=== PATIENT | male | born 1950 | race Caucasian/White ===

== ENCOUNTER 2022-09-07 17:08 | Inpatient (IN) | payer MEDICARE, OTHER ==
[~2022-09-07] VITALS: Ht 167.6 cm; Wt 66.2 kg
[2022-09-07] MEDS ORDERED: ONDANSETRON HCL/PF 4 MG/2 ML VIAL IVP ONE (17:30)
[2022-09-07] MEDS ORDERED: IV NS 0.9% 1,000 ML BAG IV ONE (17:30)
[2022-09-07] MEDS ORDERED: MORPHINE SULFATE INJ 2 MG/ML DISP.SYRIN IV ONE (17:30)
--- NOTE | 2022-09-07 17:30 | NUR ---
C/O GENERALIZED ABDOMINAL PAIN 40 MINS AGO S/P INGESTING "SMALL AMOUNT OF CODEINE".
--- NOTE | 2022-09-07 17:35 | NUR ---
BLOOD SAMPLE OBTAINED
--- NOTE | 2022-09-07 17:35 | NUR ---
ESTABLISHED IV LINE LEFT AC 20 G
--- NOTE | 2022-09-07 17:35 | NUR ---
EKG DONE BY EMT AT BEDSIDE
[2022-09-07 17:52] LABS: BASOPHILS # (AUTO) 0.1 K/uL (0.0-0.2); BASOPHILS % (AUTO) 1.5 % (0.0-2.0); EOSINOPHILS % (AUTO) 3.8 % (0.0-6.0); HEMATOCRIT 38 % (39-51); HEMOGLOBIN 12.2 g/dL (13.5-17.5); LYMPHOCYTES # (AUTO) 1.3 K/uL (0.8-4.8); MEAN CORPUSCULAR HGB CONC 32 g/dl (31.0-36.0); MEAN CORPUSCULAR VOLUME 84 fL (80-96); MONOCYTES # (AUTO) 0.9 K/uL (0.1-1.30); MONOCYTES % (AUTO) 15.8 % (2.0-12.0); NEUTROPHILS # (AUTO) 3.1 K/uL (1.8-8.9); NEUTROPHILS % (AUTO) 55.9 % (43.0-81.0); PLATELET COUNT (AUTO) 283 K/uL (150-450); RED BLOOD CELL COUNT(AUTO) 4.46 MIL/uL (4.5-6.0); WHITE BLOOD COUNT (AUTO) 5.5 K/uL (4.3-11.0)
--- NOTE | 2022-09-07 17:53 | NUR ---
COVID SWAB TAKEN SENT TO LAB
--- NOTE | 2022-09-07 17:57 | NUR ---
MOVE SHEET SUBMITTED.
[2022-09-07 18:02] LABS: CALCIUM, SERUM 8.7 mg/dL (8.5-10.1); CARBON DIOXIDE 25 mmol/L (21-32); CHLORIDE 95 mmol/L (98-107); CREATININE 1.4 mg/dL (0.6-1.3); GLUCOSE 149 mg/dL (74-106); POTASSIUM 4.2 mmol/L (3.5-5.1); SODIUM SERUM 129 mmol/L (136-145); UREA NITROGEN, BLOOD 27 mg/dL (7-18)
[2022-09-07 18:14] LABS: ALANINE AMINOTRANSFERASE 31 U/L (12-78); ALBUMIN 4.1 g/dL (3.4-5.0); ALKALINE PHOSPHATASE 83 U/L (46-116); ASPARTATE AMINOTRANSFERASE 23 U/L (15-37); BILIRUBIN,DIRECT 0.1 mg/dL (0.0-0.2); BILIRUBIN,TOTAL 0.6 mg/dL (0.2-1.0); TOTAL PROTEIN, SERUM 8.2 g/dL (6.4-8.2)
[2022-09-07 18:35] LABS: EOSINOPHILS % (MANUAL) 4 % (0-4); LYMPHOCYTES % (MANUAL) 37 % (16-48); MONOCYTES % (MANUAL) 15 % (0-11.0); NEUTROPHILS % (MANUAL) 44 (42-76)
[2022-09-07] MEDS ORDERED: LIDOCAINE 2% JEL UROJET 10 ML MM ONE (18:58)
--- NOTE | 2022-09-07 18:59 | NUR ---
PATIENT RETAINING URINE ABOUT 200ML PER BLADDER SCAN AFTER VOIDING.
[2022-09-07 20:44] LABS: BILIRUBIN,URINE NEGATIVE (NEGATIVE); COLOR,URINE YELLOW (YELLOW); LEUKOCYTE ESTERASE ,URINE NEGATIVE (NEGATIVE); NITRITE, URINE NEGATIVE (NEGATIVE); PROTEIN,URINE 1+ mg/dl (NEGATIVE); UGLUCOSE NEGATIVE (NEGATIVE); UROBILINOGEN,URINE 0.2 EU/dL (0.2)
[2022-09-07 21:09] LABS: BACTERIA,URINE Few /HPF (None Seen); MUCUS,URINE Moderate /LPF (None Seen); SQUAMOUS EPITHELIAL CELL,UR None Seen /HPF (None Seen); WBC,URINE 0-2 /HPF (0-3)
--- NOTE | 2022-09-07 21:24 | NUR ---
REPORT GIVEN TO RANJIT PATE.
[2022-09-07] MEDS ORDERED: hydrALAZINE HCL IV 20 MG VIAL IV PRN ×2 (22:00→23:00)
[2022-09-07] MEDS ORDERED: ACETAMINOPHEN 325 MG TABLET PO PRN (22:00)
[2022-09-07] MEDS ORDERED: MORPHINE SULFATE INJ 2 MG/ML DISP.SYRIN IV PRN (22:00)
[2022-09-07] MEDS ORDERED: ONDANSETRON HCL/PF 4 MG/2 ML VIAL IVP PRN (22:00)
--- NOTE | 2022-09-07 22:10 | NUR ---
PATIENT TRANSFERRED TP ROOM 306-2 VIA ACLS PROTOCOL
[2022-09-07 22:12] VITALS: BP 149/87
--- NOTE | 2022-09-07 22:12 | NUR ---
FLOOR CARE TECHNICIANADJUTANT GENERAL NOTE PT TRANSPORTED VIA GURNEY TO UNIT AT THIS TIME. PT ADMITTED TO TELE FROM ER UNDER DR HARE FOR ADMITTING DX NSTEMI. A/O X4 AND ABLE TO MAKE NEEDS KNOWN. PT STABLE ON ROOM AIR. NO SOB OR S/S OF RESPIRATORY DISTRESS. BREATHING EVEN AND UNLABORED. ON EXTERNAL COCOA MILL OPERATOR READING SB 56 BPM. IV ACCESS LAC 20G, INTACT AND PATENT. WITH CONTRERAS DRAINING CLEAR YELLOW URINE BY GRAVITY. NOTED WITH ABDOMINAL DISTENTION, SOFT AND TENDER TO TOUCH. AMBULATORY WITH ASSIST. SKIN INTACT. PT BELONGINGS ACCOUNTED FOR AND BELONGINGS LIST SIGNED. ORIENTED TO UNIT, STAFF, AND ROOM. SAFETY PRECAUTIONS IN PLACE. BED IN LOWEST LOCKED POSITION, HOB ELEVATED, SIDE RAILS UP X2, AND CALL LIGHT AND TABLE WITHIN REACH. ALL NEEDS MET AT THIS TIME.
[2022-09-07] MEDS: IV NS 0.9% 1,000 ML IV SCH (22:36)
[2022-09-08] VITALS: BP 105/67
[2022-09-08 04:00] VITALS: BP 109/68
--- NOTE | 2022-09-08 06:46 | NUR ---
ELECTRIC REFRIGERATOR PREPARER CLOSING NOTE PT AWAKE IN BED. A/O X4 AND ABLE TO MAKE NEEDS KNOWN. PT STABLE ON ROOM AIR. NO SOB OR S/S OF RESPIRATORY DISTRESS. BREATHING EVEN AND UNLABORED. ON EXTERNAL PRINT PRODUCER READING SR 61 BPM. IV ACCESS LAC 20G, INTACT AND PATENT, RUNNING NS @ 75 ML/HR. WITH CONTRERAS DRAINING CLEAR YELLOW URINE BY GRAVITY, DRAINED 1450 CC THIS SHIFT. ALL DUE MEDS GIVEN ORDERED. NO COMPLAINTS OF PAIN OR DISCOMFORT AT DURING SHIFT. SAFETY PRECAUTIONS IN PLACE AT ALL TIMES. BED IN LOWEST LOCKED POSITION, HOB ELEVATED, SIDE RAILS UP X2, AND CALL LIGHT AND TABLE WITHIN REACH. ALL NEEDS MET AT THIS TIME AND WILL ENDORSE TO ONCOMING NURSE FOR LATRELL.
[2022-09-08 06:52] LABS: BASOPHILS # (AUTO) 0.1 K/uL (0.0-0.2); BASOPHILS % (AUTO) 0.8 % (0.0-2.0); EOSINOPHILS % (AUTO) 2.6 % (0.0-6.0); HEMATOCRIT 38 % (39-51); LYMPHOCYTES # (AUTO) 1.3 K/uL (0.8-4.8); LYMPHOCYTES % (AUTO) 20.4 % (20.0-44.0); MEAN CORPUSCULAR HGB CONC 32 g/dl (31.0-36.0); MEAN CORPUSCULAR VOLUME 86 fL (80-96); MONOCYTES # (AUTO) 0.9 K/uL (0.1-1.30); NEUTROPHILS # (AUTO) 3.8 K/uL (1.8-8.9); NEUTROPHILS % (AUTO) 61.2 % (43.0-81.0); PLATELET COUNT (AUTO) 251 K/uL (150-450); RED BLOOD CELL COUNT(AUTO) 4.44 MIL/uL (4.5-6.0); WHITE BLOOD COUNT (AUTO) 6.3 K/uL (4.3-11.0)
[2022-09-08 07:18] LABS: ALBUMIN 3.6 g/dL (3.4-5.0); BILIRUBIN,TOTAL 0.6 mg/dL (0.2-1.0); CREATININE 1.2 mg/dL (0.6-1.3); MAGNESIUM 2.5 mg/dL (1.8-2.4); POTASSIUM 4.7 mmol/L (3.5-5.1); TOTAL PROTEIN, SERUM 7.6 g/dL (6.4-8.2)
--- NOTE | 2022-09-08 07:20 | NUR ---
SHEET METAL FABRICATOR OPENING NOTES RECEIVED PATIENT AWAKE IN BED RESTING, APPEARS TO BE COMFORTABLE, A/OX4, DENIES PAIN AT THIS TIME, ON RA, BREATHING EVEN AND UNLABORED, NO DISTRESS OR SOB NOTED, IV ACCESS LAC 20#G, ON SALINE LOCK, INTACT, PATENT AND FLUSHING WELL, PATIENT WITH EXTERNAL WHARF WORKER WITH CURRENT READING OF SR WITH PAC'S AND CURRENT HR OF 62, NO CARDIAC DISTRESS NOTED, PATIENT IS CONTINENT, ON BRP, FALL AND SAFETY MEASURES IN PLACE, BED IN LOW AND LOCK POSITION, CALL LIGHT AND TRAY TABLE WITHIN EASY REACH, SIDE RAILS UP X2, WILL CONTINUE TO MONITOR PATIENT
[2022-09-08 08:00] VITALS: BP 139/77
[2022-09-08] MEDS ORDERED: HEPARIN SODIUM, PORCINE 5000 UNITS/1 ML VIAL SQ SCH (09:00)
--- NOTE | 2022-09-08 10:22 | NUR ---
RN NOTE DR. CHINCHILLA SAW PATIENT AND ORDERED TO DC FC. FC REMOVED W/O PROBLEM AND PATIENT TOLERATED WELL, WILL MONITOR PATIENT IF HE CAN VOID.
[2022-09-08] MEDS: IV NS 0.9% 1,000 ML IV SCH (11:26)
[2022-09-08 12:00] VITALS: BP 153/91
--- NOTE | 2022-09-08 14:15 | NUR ---
RN NOTES PT VOIDED X2 WITHOUT PROBLEMS AFTER REMOVING HIS CONTRERAS CATHETER THIS MORNING. DR CHINCHILLA MADE AWARE WITH ORDER TO D/C HOME PT.
[2022-09-08 16:00] VITALS: BP 136/81
--- NOTE | 2022-09-08 16:25 | NUR ---
RN DISCHARGED NOTES PATIENT DISCHARGED HOME IN STABLE MEDICAL CONDITION. PATIENT IS A/OX4, ABLE TO MAKE NEEDS KNOWN, V/S TAKEN, STABLE AND RECORDED, IV ACCESS REMOVED ON LACG#20, DRY PRESSURE DRESSING APPLIED, NO ACTIVE BLEEDING NOTED, EXTERNAL SEARCH ENGINEER REMOVED AND RETURNED TO PRIMER SUPERVISOR CHRIS. ALL BELONGINGS CHECKED AND BELONGINGS LIST SIGNED BY PT. HEALTH TEACHINGS/DISCHARGE INSTRUCTIONS GIVEN TO PT AND VERBALIZED UNDERSTANDING. INSTRUCTED PATIENT IN CASE OF EMERGENCY TO CALL 911 OR GO TO THE NEAREST ER, PATIENT LEFT UNIT VIA WHEELCHAIR ACCOMPANIED BY [facility] TO THE LOBBY AT 1420. PT'S DAUGHTER WILL CALL [facility]BER TO TAKE PT'S HOME. CHARGE NURSE AND MD AWARE OF DISCHARGE.
== END 2022-09-08 16:45 | disposition home or self-care (01) | DRG 682 ==
LOC: ER 17:56 → TELE 20:34
PROVIDERS: ADMIT Internal Medicine; ATTEND Nurse Practitioner Acute Care
DX: N17.9 Acute kidney failure, unspecified (principal); I21.A1 Myocardial infarction type 2; E87.1 Hypo-osmolality and hyponatremia; N13.4 Hydroureter; N40.1 Benign prostatic hyperplasia with lower urinary tract symptoms; R33.8 Other retention of urine; K57.30 Diverticulosis of large intestine without perforation or abscess without bleeding; D64.9 Anemia, unspecified; E11.9 Type 2 diabetes mellitus without complications; E83.41 Hypermagnesemia; H91.90 Unspecified hearing loss, unspecified ear; I10 Essential (primary) hypertension; N28.1 Cyst of kidney, acquired; T48.4X5A Adverse effect of expectorants, initial encounter; Y92.009 Unspecified place in unspecified non-institutional (private) residence as the place of occurrence of the external cause; R31.9 Hematuria, unspecified
CPT/HCPCS: 36415; 71045-TC; 80048-TC; 80053-TC; 80076-TC; 81001; 82962-TC; 83605-TC; 83735-TC; 83880; 84100-TC; 84484-TC; 85025-TC; 85378-TC; 87081-TC; 93307-TC; A4223; C9803; G0378; J1644; J3490; J7030